=== PATIENT | male | born 1935 | race Caucasian/White ===

== ENCOUNTER 2018-06-01 11:11 | Emergency (ER) | payer MEDICARE, BC ==
[~2018-06-01] VITALS: Ht 170.2 cm; Wt 69.9 kg
[2018-06-01 11:20] VITALS: BP 145/74
--- NOTE | 2018-06-01 11:43 | NUR ---
Pt discharged with [facility] for transport back to [facility]
== END 2018-06-01 11:46 | disposition home or self-care (01) ==
LOC: ER 11:13
DX: S62.647A Nondisplaced fracture of proximal phalanx of left little finger, initial encounter for closed fracture (principal); I10 Essential (primary) hypertension; F03.90 Unspecified dementia, unspecified severity, without behavioral disturbance, psychotic disturbance, mood disturbance, and anxiety; N28.9 Disorder of kidney and ureter, unspecified; N40.0 Benign prostatic hyperplasia without lower urinary tract symptoms; R33.9 Retention of urine, unspecified; G89.29 Other chronic pain; M54.9 Dorsalgia, unspecified; F29 Unspecified psychosis not due to a substance or known physiological condition; F32.9 Major depressive disorder, single episode, unspecified; F39 Unspecified mood [affective] disorder; X58.XXXA Exposure to other specified factors, initial encounter; Y93.89 Activity, other specified; Y92.89 Other specified places as the place of occurrence of the external cause; Y99.8 Other external cause status